=== PATIENT | female | born 1965 | race Caucasian/White ===

== ENCOUNTER → 2020-07-28 14:57 | Outpatient (CLI) | payer OTHER, SELFPAY ==
[2020-07-28 15:21] LABS: COVID19 -Nasal RAPID Negative (Negative)
== END ==
PROVIDERS: PCP Family Medicine; Visit Provider Physician Assistant
DX: Z20.822 Contact with and (suspected) exposure to COVID-19 (principal)
CPT/HCPCS: 87635

== ENCOUNTER → 2020-07-28 16:12 | Outpatient (CLI) | payer OTHER, SELFPAY ==
--- NOTE | 2020-07-28 16:13 | DI.MG.S_ITS ---
BILATERAL DIGITAL SCREENING MAMMOGRAM 3D/2D WITH CAD: 07/28/2020 CLINICAL: Routine screening. Comparison is made to exams dated: 11/01/2018 mammogram, 01/18/2017 mammogram, and 03/31/2015 mammogram - outside location. There are scattered fibroglandular elements in both breasts. Current study was also evaluated with a Computer Aided Detection (CAD) system. No significant masses, calcifications, or other findings are seen in either breast. There has been no significant interval change. IMPRESSION: NEGATIVE There is no mammographic evidence of malignancy. A 1 year screening mammogram is recommended. This exam was interpreted at Station ID: [id number]. NOTE: For mammograms, a report in lay terms will be sent to the patient. Approximately 15% of breast malignancies will not be visualized mammographically. In the management of a palpable breast mass, a negative mammogram must not discourage biopsy of a clinically suspicious lesion. Electronically Signed By: David hodgson/chrissy:07/29/2020 08:12:14 letter sent: Normal Exam ACR BI-RADS Category 1: Negative 3341F
== END ==
PROVIDERS: PCP Physician Assistant Medical; Referring Provider Physician Assistant Medical; Visit Provider Physician Assistant Medical
DX: Z12.31 Encounter for screening mammogram for malignant neoplasm of breast (principal)
CPT/HCPCS: 77063; 77067

== ENCOUNTER → 2020-07-30 10:11 | Outpatient (CLI) | payer OTHER, SELFPAY ==
--- NOTE | 2020-07-30 23:45 | DI.NM.S_ITS ---
DATE OF SERVICE: 07/30/2020 PROCEDURE PERFORMED: Exercise treadmill stress and rest myocardial perfusion imaging with gating to assess ejection fraction and regional wall motion. ORDERING PROVIDER: Meredith Kinney PA-C. INDICATIONS: The patient is a 54-year-old diabetic female with atypical chest discomfort. EXERCISE TREADMILL TESTING: The patient was able to exercise for a total of 9 minutes 1 second on a standard Jose protocol suggesting good exercise capacity with an ELI of -17%. She had an accelerated heart rate response to exercise with a resting heart rate of 112 BPM that increased to 142 BPM after 3 minutes of walking and reached a maximum heart rate of 174 BPM (104% of her predicted maximum). She had a normal blood pressure response to exercise. She had no chest pain or anginal discomfort with stress. Her resting ECG shows sinus rhythm with mild, nonspecific ST-segment abnormalities which become accentuated with stress, but remain upsloping in nature and thus nonspecific for ischemia and resolves within 1 minute of recovery. She had rare isolated PVCs, but no complex ventricular ectopy. At 6 minutes 50 seconds of exercise at a heart rate of 160 BPM, 24.8 millicuries of technetium-99m Myoview was injected and she was imaged 20 minutes later using a gated SPECT acquisition protocol. Earlier in the day while at rest, she was injected with 11.3 millicuries of technetium-99m Myoview and was imaged 20 minutes later, again using a gated SPECT acquisition protocol. FINDINGS: 1. Raw data: There is fairly good myocardial tracer uptake with mild breast shadows noted. Lung/heart ratio was normal at 0.32 with a normal TID ratio of 0.71. 2. Quantitated gated SPECT: Post-stress ejection fraction is 76% without any focal wall motion abnormality. Resting ejection fraction is 74% with a normal resting end-diastolic volume of 77 mL. 3. Myocardial perfusion imaging: Post-stress supine images show a normal myocardial perfusion pattern without any perfusion defects, supported by normal perfusion imaging in the prone position. The resting images show an identical perfusion pattern without any areas of significant improvement. IMPRESSION: 1. Normal myocardial perfusion study. 2. No evidence of myocardial ischemia or previous myocardial infarction. 3. Normal left ventricular systolic function without any focal wall motion abnormality. 4. Good exercise capacity without angina and only nonspecific ST-segment changes with exercise. She had an accelerated heart rate response to exercise with isolated PVCs but no other arrhythmias. Patria Garcia - CASTRO/rosenda/jose doc#: [id number]/job#: [id number] dd: 07/30/2020 17:02:00 dt: 07/30/2020 17:42:00 DICTATING MD/COPIES TO: Ventura Hernandez MD; LOREN Rodriges COPIES MNE: ANASTASIA;
== END ==
PROVIDERS: PCP Physician Assistant Medical; Referring Provider Physician Assistant Medical; Visit Provider Physician Assistant Medical
DX: R07.9 Chest pain, unspecified (principal)
CPT/HCPCS: 78452; 93017; A9502

== ENCOUNTER → 2022-08-07 09:50 | Outpatient (CLI) | payer OTHER, SELFPAY ==
--- NOTE | 2022-08-07 | DI.MG.S_ITS ---
BILATERAL DIGITAL SCREENING MAMMOGRAM 3D/2D WITH CAD: 08/07/2022 CLINICAL: Routine screening. Comparison is made to exams dated: 07/28/2020 mammogram - [facility], 11/01/2018 mammogram, 01/18/2017 mammogram, and 03/31/2015 mammogram - outside location. There are scattered areas of fibroglandular density in both breasts (category b / 25%-50% glandular tissue). Current study was also evaluated with a Computer Aided Detection (CAD) system. No significant masses, calcifications, or other findings are seen in either breast. There has been no significant interval change. IMPRESSION: NEGATIVE There is no mammographic evidence of malignancy. A 1 year screening mammogram is recommended. Based on the Tyrer Cuzick model (a risk assessment model) the patient's lifetime risk is 6.7% and her 10 year risk is 1.9%. According to the ACR, ACS, and NCCN guidelines, an annual breast MRI exam along with mammogram is recommended if the patient's lifetime risk is 20% or greater. This exam was interpreted at Station ID: [id number]. NOTE: For mammograms, a report in lay terms will be sent to the patient. Approximately 15% of breast malignancies will not be visualized mammographically. In the management of a palpable breast mass, a negative mammogram must not discourage biopsy of a clinically suspicious lesion. Electronically Signed By: Chay ferrell/chrissy:08/07/2022 12:27:11 letter sent: Normal Exam ACR BI-RADS Category 1: Negative 3341F
== END ==
PROVIDERS: PCP Physician Assistant Medical; Referring Provider Physician Assistant Medical; Visit Provider Physician Assistant Medical
DX: Z12.31 Encounter for screening mammogram for malignant neoplasm of breast (principal)
CPT/HCPCS: 77063; 77067